=== PATIENT | female | born 1935 | race Caucasian/White ===

== ENCOUNTER → 2020-01-14 14:12 | Outpatient (CLI) | payer MEDICARE, OTHER, SELFPAY ==
--- NOTE | 2020-01-14 | DI.US.S_ITS ---
PROCEDURE: US THORACENTESIS INDICATIONS: PLEURAL EFFUSION TECHNIQUE: The indications, alternatives, benefits, risks, and complications of the procedure were explained to the patient. Written informed consent was obtained and placed in the chart. The chest was examined sonographically, and an appropriate site was chosen for thoracentesis. The skin was prepared and draped in the usual sterile fashion, and 1% lidocaine was infiltrated from the skin down through the pleural surface. A 19-gauge catheter-covered needle was then introduced into the pleural space, the catheter was advanced and the needle was withdrawn, and thereafter pleural fluid was aspirated. The catheter was then removed and a dressing was applied. COMPARISON: [facility], CR, XR CHEST 2 VIEWS, 12/30/2019, 10:59. [facility], CR, XR CHEST 1V, 01/14/2020, 14:32. FINDINGS: Access site: Left hemithorax. Needle: One-Step centesis catheter with introducer needle. Fluid volume and description: ~800 mL, clear Fluid sent for diagnostic testing: Per ordering physician. Medications: 1% lidocaine for local anaesthesia. Complications: None; post-procedural chest radiograph is pending to assess for pneumothorax. IMPRESSION: Successful ultrasound-guided thoracentesis. Dictated by: Betty Mejia M.D. on 01/14/2020 at 17:09 Approved by: Betty Mejia M.D. on 01/14/2020 at 17:10
--- NOTE | 2020-01-14 | PATH_ITS ---
Note [facility] Accession Number: [id number] TESTS RESULT FLAG UNITS REF RANGE LAB Clinician Provided Cytology Information No. of containers..01 Other (Miscellaneous) LEFT PLEURAL FLUID DIAGNOSIS: 01 LEFT PLEURAL FLUID, THORACENTESIS. NEGATIVE FOR MALIGNANT CELLS. REACTIVE MESOTHELIAL CELLS PRESENT. THIS INTERPRETATION INCLUDES EVALUATION OF A CELL BLOCK. Pathologist ICD10: 01 J90 Nicolás Clark MD, Pathologist NPI- [id number] Shawn Rodriguez, Dental Chairside Assistant ([facility]) 01 60 CC, YELLOW, CLEAR /LCS 01/15/2020 1303 Local FLAG LEGEND: L-Low Normal,H-High Normal,LL-Alert Low,HH-Alert High <-Panic Low,>-Panic High,A-Abnormal,AA-Critical Abnormal Performed at: 01 =Z [facility] [address], [place] [address] Satya Luther MD, Performed at: 01 [facility] [address], [place], [place] [id number] MD Satya Luther MD Phone: [phone]
--- NOTE | 2020-01-14 | DI.RAD.S_ITS ---
PROCEDURE: XR CHEST 1V INDICATIONS: POST THORACENTESIS TECHNIQUE: One view of the chest was acquired. COMPARISON: [facility], CR, XR CHEST 2 VIEWS, 12/30/2019, 10:59. [facility], CR, XR CHEST 2 VIEWS, 08/21/2019, 12:35. [facility], CR, XR CHEST 2 VIEWS, 08/06/2019, 7:18. FINDINGS: Surgical changes and devices: None. Lungs and pleura: There is a [id number] left effusion, decreased in size compared to the last exam. No pneumothorax. Left basilar atelectasis is present. Mediastinum: Mediastinal contours appear normal. Heart size is mildly increased. Bones and chest wall: No suspicious bony lesions. Overlying soft tissues appear unremarkable. IMPRESSION: No pneumothorax post thoracentesis. Dictated by: Betty Mejia M.D. on 01/14/2020 at 15:43 Approved by: Betty Mejia M.D. on 01/14/2020 at 15:45
[2020-01-14 16:42] LABS: LDH Body Fluid 227 U/L; Total Protein Body Fluid 3.7 g/dL
[2020-01-14 16:49] LABS: Body Fluid Tot Nucleated Cells 442 /uL
[2020-01-14 16:52] LABS: Body Fluid Red Blood Cells 238 /uL
[2020-01-14 16:53] LABS: Body Fluid Appearance SLIGHTLY CLOUDY; Body Fluid Clotted? NO CLOTS PRESENT; Body Fluid Color YELLOW
[2020-01-14 17:19] LABS: Mononuclear WBC Body Fluid 100 %; Polynuclear WBC Body Fluid 0 %
== END ==
PROVIDERS: PCP Internal Medicine; Referring Provider Internal Medicine; Visit Provider Internal Medicine
DX: J90 Pleural effusion, not elsewhere classified (principal)
CPT/HCPCS: 32555; 71045; 83615; 84157; 87070; 87075; 87205; 89051

== ENCOUNTER → 2020-02-22 12:30 | Outpatient (CLI) | payer MEDICARE, OTHER, SELFPAY ==
--- NOTE | 2020-02-22 | DI.RAD.S_ITS ---
PROCEDURE: XR CHEST 2V INDICATIONS: HEART FAILURE TECHNIQUE: 2 views of the chest were acquired. COMPARISON: [facility], , XR CHEST 1V, 01/14/2020, 14:32. FINDINGS: Surgical changes and devices: leadless cardiac pacer. Right upper quadrant surgical clips and breast prostheses. Lungs and pleura: Scattered subsegmental atelectasis and/or scarring. No focal consolidation. Small left pleural effusion with adjacent atelectasis, appears slightly increased since 01/14/20. No pneumothorax. Mediastinum: Mediastinal contours are normal. Heart size is normal. Chronic left clavicle fracture IMPRESSION: Small left pleural effusion with adjacent atelectasis, slightly increased since prior study Dictated by: Fabio Fairbanks M.D. on 02/22/2020 at 13:16 Approved by: Fabio Fairbanks M.D. on 02/22/2020 at 13:19
[2020-02-22 13:32] LABS: Add Manual Diff / Slide Review NO; Basophils Absolute Auto 100 /uL (0-100); Basophils Percent Auto 1.2 % (0-2); Eosinophils Absolute Auto 100 /uL (0-450); Eosinophils Percent Auto 2.6 % (2-4); Hematocrit 39.6 % (36-46); Hemoglobin 13.3 g/dL (12.0-16.0); Lymphocytes Absolute Auto 800 /uL (1100-4500); Lymphocytes Percent Auto 18.1 % (25-40); Mean Corpuscular HGB Conc 33.5 % (30-36); Mean Corpuscular Volume 95.6 fL (80-100); Monocytes Absolute Auto 500 /uL (0-900); Monocytes Percent Auto 10.5 % (3-14); Neutrophils Absolute Auto 2900 /uL (1500-7000); Neutrophils Percent Auto 67.6 % (50-75); Platelet Count 165 X10^3/uL (150-400); Red Blood Cell Count 4.15 X10^6/uL (4.0-5.2); Red Cell Distribution Width 15.5 % (11.6-14.8); White Blood Cell Count 4.3 X10^3/uL (4.5-11.0)
[2020-02-22 14:01] LABS: Alanine Aminotransferase 21 IU/L (<35); Albumin 3.6 g/dL (3.5-5.0); Albumin Globulin Ratio 1.2 (1.0-2.8); Alkaline Phosphatase 40 U/L (38-126); Aspartate Aminotransferase 27 IU/L (14-36); BUN Creatinine Ratio 13.1 (6-22); Bilirubin Total 0.5 mg/dL (0.2-1.3); Blood Urea Nitrogen 20 mg/dL (7-17); Calcium 9.6 mg/dL (8.4-10.2); Carbon Dioxide 29 mmol/L (22-32); Chloride 101 mmol/L (98-107); Estimated Glomerular Filt Rate 32.3 mL/min (>60); Globulin 2.9 g/dL (1.7-4.1); Glucose 96 mg/dL (80-110); HEMOLYSIS < 15 (0-50); Potassium 4.4 mmol/L (3.4-5.1); Sodium 136 mmol/L (137-145); Total Protein 6.5 g/dL (6.3-8.2)
== END ==
PROVIDERS: PCP Internal Medicine; Referring Provider Internal Medicine; Visit Provider Internal Medicine
DX: J90 Pleural effusion, not elsewhere classified (principal); I50.9 Heart failure, unspecified; J98.11 Atelectasis
CPT/HCPCS: 36415; 71046; 80053; 85025

== ENCOUNTER → 2020-03-21 15:00 | Outpatient (CLI) | payer MEDICARE, OTHER, SELFPAY ==
--- NOTE | 2020-03-21 | DI.RAD.S_ITS ---
PROCEDURE: XR CHEST 2V INDICATIONS: Heart Failure and Pleural Effusion TECHNIQUE: 2 views of the chest were acquired. COMPARISON: [facility], CR, XR CHEST 2V, 02/22/2020, 12:33. [facility], CR, XR CHEST 1V, 01/14/2020, 14:32. FINDINGS: Surgical changes and devices: Implanted cardiac monitoring device overlies the left paramedian lower chest. Lungs and pleura: Lungs are abnormal with left lung base atelectasis. Increasing left pleural effusions, no pneumothorax. The left pleural effusion was moderate in size previously and now is moderately large. Mediastinum: Mediastinal contours are normal. Heart size is normal. Bones and chest wall: No suspicious bony abnormalities. Soft tissues appear unremarkable. IMPRESSION: Increasing left pleural effusion, moderately large, with reference to the comparison from 02/22/20. Increased atelectasis. Dictated by: Elijah Longo M.D. on 03/21/2020 at 15:28 Approved by: Elijah Longo M.D. on 03/21/2020 at 15:38
== END ==
PROVIDERS: PCP Internal Medicine; Referring Provider Internal Medicine; Visit Provider Internal Medicine
DX: J90 Pleural effusion, not elsewhere classified (principal); I50.9 Heart failure, unspecified; J98.11 Atelectasis
CPT/HCPCS: 71046

== ENCOUNTER → 2020-03-23 13:00 | Outpatient (CLI) | payer MEDICARE, OTHER, SELFPAY ==
[2020-03-23 14:14] LABS: INR 1.4 (0.9-1.3); Prothrombin Time 16.2 SECONDS (10.1-12.7)
[2020-03-23 14:16] LABS: PTT Partial Thromboplastin Tim 35 SECONDS (26.4-36.2)
== END ==
PROVIDERS: PCP Internal Medicine; Referring Provider Internal Medicine; Visit Provider Internal Medicine
DX: J90 Pleural effusion, not elsewhere classified (principal)
CPT/HCPCS: 36415; 85610; 85730

== ENCOUNTER → 2020-03-25 14:05 | Outpatient (CLI) | payer MEDICARE, OTHER, SELFPAY ==
--- NOTE | 2020-03-25 | DI.RAD.S_ITS ---
PROCEDURE: XR CHEST 1V INDICATIONS: S/P LEFT THORACENTESIS TECHNIQUE: One view of the chest was acquired. COMPARISON: [facility], CR, XR CHEST 2V, 03/21/2020, 14:57. FINDINGS: Surgical changes and devices: An intracardiac implanted monitoring device is redemonstrated. Lungs and pleura: There is a small residual left pleural effusion, decreased from the prior study. No evidence of pneumothorax. Linear left basilar opacities likely represent residual atelectasis. Linear right basilar opacities also likely represent atelectasis. There is mild pulmonary vascular prominence suggestive of mild edema. Mediastinum: Mediastinal contours appear unchanged. Heart size is enlarged. Bones and chest wall: No suspicious bony lesions. Overlying soft tissues appear unremarkable. IMPRESSION: 1. No evidence of pneumothorax. 2. Small decreased residual left pleural effusion and left basilar atelectasis. Dictated by: Satya Greenberg M.D. on 03/25/2020 at 15:52 Approved by: Satya Greenberg M.D. on 03/25/2020 at 16:02
--- NOTE | 2020-03-25 | PATH_ITS ---
Note [facility] Accession Number: [id number] TESTS RESULT FLAG UNITS REF RANGE LAB Clinician Provided Cytology Information No. of containers..01 Other (Miscellaneous) LEFT PLEURAL FLUID DIAGNOSIS: LEFT PLEURAL FLUID NEGATIVE FOR MALIGNANT CELLS. Pathologist ICD10: J90 Svetlana Drake MD, Pathologist NPI- [id number] Cristobal Sebastian, Manager Books ([facility]) 01 85 CC, YELLOW, CLOUDY RECEIVED: FRESH IN BLUE CAP CONTAINER. /VD 03/29/2020 1015 [facility] FLAG LEGEND: L-Low Normal,H-High Normal,LL-Alert Low,HH-Alert High <-Panic Low,>-Panic High,A-Abnormal,AA-Critical Abnormal Performed at: 01 =Z [facility] [address], [place] [address] Satya Luther MD, Performed at: 01 [facility] [address], [place], [place] [id number] MD Satya Luther MD Phone: [phone]
--- NOTE | 2020-03-25 | DI.US.S_ITS ---
PROCEDURE: US THORACENTESIS INDICATIONS: PLUERAL EFFUSION TECHNIQUE: The indications, alternatives, benefits, risks, and complications of the procedure were explained to the patient. Written informed consent was obtained and placed in the chart. The chest was examined sonographically, and an appropriate site was chosen for thoracentesis. The skin was prepared and draped in the usual sterile fashion, and 1% lidocaine was infiltrated from the skin down through the pleural surface. A 19-gauge catheter-covered needle was then introduced into the pleural space, the catheter was advanced and the needle was withdrawn, and thereafter pleural fluid was aspirated. The catheter was then removed and a dressing was applied. COMPARISON: [facility], THORACENTESIS, 01/14/2020, 14:47. FINDINGS: Access site: Left hemithorax. Needle: One-Step centesis catheter with introducer needle. Fluid volume and description: 1300 cc of serous fluid Fluid sent for diagnostic testing: For cytology Medications: 1% lidocaine for local anaesthesia. Complications: None; post-procedural chest radiograph is pending to assess for pneumothorax. IMPRESSION: Successful ultrasound-guided thoracentesis. Dictated by: Fabio Fairbanks M.D. on 03/25/2020 at 17:05 Approved by: Fabio Fairbanks M.D. on 03/25/2020 at 17:06
== END ==
PROVIDERS: PCP Internal Medicine; Referring Provider Internal Medicine; Visit Provider Internal Medicine
DX: J90 Pleural effusion, not elsewhere classified (principal)
CPT/HCPCS: 32555; 71045

== ENCOUNTER → 2020-03-31 16:21 | Outpatient (CLI) | payer MEDICARE, OTHER, SELFPAY ==
[2020-03-31 17:36] LABS: Lactate Dehydrogenase 464 U/L (313-618); Total Protein 6.5 g/dL (6.3-8.2)
[2020-04-01 16:05] LABS: Alanine Aminotransferase 11 IU/L (<35); Albumin 3.5 g/dL (3.5-5.0); Albumin Globulin Ratio 1.2 (1.0-2.8); Alkaline Phosphatase 44 U/L (38-126); Aspartate Aminotransferase 24 IU/L (14-36); BUN Creatinine Ratio 14.7 (6-22); Bilirubin Total 0.7 mg/dL (0.2-1.3); Blood Urea Nitrogen 21 mg/dL (7-17); Calcium 9.7 mg/dL (8.4-10.2); Carbon Dioxide 30 mmol/L (22-32); Chloride 100 mmol/L (98-107); Glucose 145 mg/dL (80-110); HEMOLYSIS < 15 (0-50); Potassium 3.9 mmol/L (3.4-5.1); Sodium 137 mmol/L (137-145)
[2020-04-01 16:14] LABS: NT-proBNP (BNP-Adult 18+) 3150 pg/mL (<450)
[2020-04-01 16:36] LABS: TSH w/ Reflex to FT4 2.79 uIU/mL (0.47-4.68)
== END ==
PROVIDERS: PCP Internal Medicine; Referring Provider Internal Medicine; Visit Provider Internal Medicine
DX: J90 Pleural effusion, not elsewhere classified (principal); R06.02 Shortness of breath; I10 Essential (primary) hypertension
CPT/HCPCS: 36415; 80053; 83615; 83880; 84155; 84443

== ENCOUNTER → 2020-04-08 14:37 | Outpatient (CLI) | payer MEDICARE, OTHER, SELFPAY ==
--- NOTE | 2020-04-08 | DI.RAD.S_ITS ---
PROCEDURE: XR CHEST 2V INDICATIONS: Pleural effusion, not elsewhere classified TECHNIQUE: 2 views of the chest were acquired. COMPARISON: [facility], CR, XR CHEST 1V, 03/25/2020, 15:26. [facility], CR, XR CHEST 2V, 03/21/2020, 14:57. FINDINGS: Surgical changes and devices: Implanted small cardiac monitoring device superimposes on the cardiac silhouette to left of midline anteriorly.. Lungs and pleura: Lungs are abnormal with a mild edema pattern as has been previously the case. The subpulmonic right pleural effusion has redeveloped after thoracentesis 03/25/20 and occupies slightly over one half of the left hemithorax. pleural effusions or pneumothorax. Mediastinum: Mediastinal contours are normal. Heart size is normal. Bones and chest wall: No suspicious bony abnormalities. Soft tissues appear unremarkable. IMPRESSION: Increasing left pleural effusion, generalized mild pulmonary edema again noted. Dictated by: Elijah Longo M.D. on 04/08/2020 at 15:29 Approved by: Elijah Longo M.D. on 04/08/2020 at 15:32
[2020-04-08 16:29] LABS: Alanine Aminotransferase 13 IU/L (<35); Albumin Globulin Ratio 1.4 (1.0-2.8); Alkaline Phosphatase 43 U/L (38-126); Aspartate Aminotransferase 24 IU/L (14-36); BUN Creatinine Ratio 16.1 (6-22); Blood Urea Nitrogen 22 mg/dL (7-17); Calcium 10.1 mg/dL (8.4-10.2); Carbon Dioxide 31 mmol/L (22-32); Chloride 98 mmol/L (98-107); Estimated Glomerular Filt Rate 36.7 mL/min (>60); Globulin 2.8 g/dL (1.7-4.1); Glucose 123 mg/dL (80-110); HEMOLYSIS < 15 (0-50); Potassium 3.3 mmol/L (3.4-5.1); Sodium 137 mmol/L (137-145); Total Protein 6.8 g/dL (6.3-8.2)
[2020-04-08 16:33] LABS: NT-proBNP (BNP-Adult 18+) 2670 pg/mL (<450)
== END ==
PROVIDERS: PCP Internal Medicine; Referring Provider Internal Medicine; Visit Provider Denturist
DX: J90 Pleural effusion, not elsewhere classified (principal); I50.9 Heart failure, unspecified
CPT/HCPCS: 36415; 71046; 80053; 83880

== ENCOUNTER → 2020-04-19 12:46 | Outpatient (CLI) | payer MEDICARE, OTHER, SELFPAY ==
--- NOTE | 2020-04-19 | PATH_ITS ---
Note [facility] Accession Number: [id number] TESTS RESULT FLAG UNITS REF RANGE LAB Clinician Provided Cytology Information No. of containers..01 Other (Miscellaneous) PLEURAL FLUID DIAGNOSIS: LEFT PLEURAL FLUID, ASPIRATION. NEGATIVE FOR MALIGNANT CELLS. FEW BENIGN MESOTHELIAL CELLS IN A BACKGROUND OF SMALL LYMPHOCYTES. THIS INTERPRETATION INCLUDES EVALUATION OF A CELL BLOCK. Pathologist ICD10: 01 J90 Nicolás Clark MD, Pathologist NPI- [id number] Erwin Gamboa, Capacitor Inspector ([facility]) 01 15 CC, YELLOW, CLEAR RECEIVED: FRESH IN 50 CC BLUE CAP TUBE. /VDU 04/22/2020 0833 Local FLAG LEGEND: L-Low Normal,H-High Normal,LL-Alert Low,HH-Alert High <-Panic Low,>-Panic High,A-Abnormal,AA-Critical Abnormal Performed at: 01 =Z [facility] [address], [place] [address] Satya Luther MD, Performed at: 01 [facility] [address], [place], [place] [id number] MD Satya Luther MD Phone: [phone]
--- NOTE | 2020-04-19 | DI.RAD.S_ITS ---
PROCEDURE: XR CHEST 1V INDICATIONS: POST THORACENTISIS AT 4:45 PM TECHNIQUE: One view of the chest was acquired. COMPARISON: [facility], CT, CT CHEST WO CON, 04/19/2020, 15:35. [facility], US, US THORACENTESIS, 04/19/2020, 14:34. [facility], CR, XR CHEST 1V, 03/25/2020, 15:26. [facility], CR, XR CHEST 2V, 04/08/2020, 14:43. [facility], CR, XR CHEST 1V, 04/19/2020, 14:29. FINDINGS: Surgical changes and devices: Leadless right upper quadrant surgical clips. cardiac pacer. Lungs and pleura: Redemonstrated bilateral apical calcifications. Small residual left pleural effusion. No pneumothorax. No acute consolidation Mediastinum: Mediastinal contours appear normal. Heart size is normal. Bones and chest wall: No suspicious bony lesions. Chronic left clavicle fracture. Overlying soft tissues appear unremarkable. IMPRESSION: No radiographically visible pneumothorax (small left pneumothorax noted on the comparison CT, as reported). No interval change since the prior chest radiograph. Dictated by: Fabio Fairbanks M.D. on 04/19/2020 at 16:46 Approved by: Fabio Fairbanks M.D. on 04/19/2020 at 16:52
--- NOTE | 2020-04-19 12:57 | DI.US.S_ITS ---
PROCEDURE: US THORACENTESIS INDICATIONS: PLEURAL EFFUSION TECHNIQUE: The indications, alternatives, benefits, risks, and complications of the procedure were explained to the patient. Written informed consent was obtained and placed in the chart. The chest was examined sonographically, and an appropriate site was chosen for thoracentesis. The skin was prepared and draped in the usual sterile fashion, and 1% lidocaine was infiltrated from the skin down through the pleural surface. A 19-gauge catheter-covered needle was then introduced into the pleural space, the catheter was advanced and the needle was withdrawn, and thereafter pleural fluid was aspirated. The catheter was then removed and a dressing was applied. COMPARISON: [facility], THORACENTESIS, 03/25/2020, 14:52. FINDINGS: Access site: Left hemithorax. Needle: One-Step centesis catheter with introducer needle. Fluid volume and description: 860 cc of serous fluid Fluid sent for diagnostic testing: Not requested Medications: 1% lidocaine for local anaesthesia. Complications: No immediate complication; post-procedural chest radiograph is pending to assess for pneumothorax. IMPRESSION: Successful ultrasound-guided thoracentesis. Dictated by: Fabio Fairbanks M.D. on 04/21/2020 at 11:36 Approved by: Fabio Fairbanks M.D. on 04/21/2020 at 11:37
--- NOTE | 2020-04-19 12:59 | DI.CT.S_ITS ---
PROCEDURE: CT CHEST WO CON INDICATIONS: Pleural effusion, not elsewhere classified TECHNIQUE: Noncontrast 5 mm thick sections acquired from the pulmonary apices to the posterior costophrenic angles. 1 mm lung window, 5 mm thick coronal and sagittal and 7 mm axial MIP reformats were then acquired. For radiation dose reduction, the following was used: automated exposure control, adjustment of mA and/or kV according to patient size. COMPARISON: CT, CT ANGIO CHEST PE, 06/22/2019, 13:15. [facility], CR, XR CHEST 2V, 04/08/2020, 14:43. [facility], CR, XR CHEST 1V, 03/25/2020, 15:26. [facility], US, US THORACENTESIS, 03/25/2020, 14:52. [facility], CR, XR CHEST 2V, 03/21/2020, 14:57. [facility], CR, XR CHEST 2V, 02/22/2020, 12:33. FINDINGS: Image quality: Excellent. Lungs and pleura: No acute consolidation. There is scattered left basilar atelectasis and scarring. Some of these demonstrate nodular appearance such as image 184/3 of the lingula, still technically nonspecific. Minimal if any left pleural fluid. Small residual left basilar pneumothorax is seen after thoracentesis performed earlier same day Right apical scarring. Elsewhere, right lung appears clear except for mild scarring/atelectasis. Mild scattered areas of groundglass opacity, potentially low-grade pulmonary edema versus chronic interstitial disease Central and peripheral airways are patent and normal in caliber. Mediastinum: Heart size is enlarged. Coronary artery calcifications are present. Leadless cardiac pacer noted. Mild pericardial effusion. No mediastinal adenopathy by size criteria. Thoracic aorta and central pulmonary arteries are normal in size. Esophagus is normal in caliber. No hiatal hernia. Bones and chest wall: Bilateral breast prostheses. From No suspicious bony lesions. No vertebral body compression fractures. Diffuse osteopenia . Mild deformity of the sternum is unchanged since 2019. No axillary or supraclavicular adenopathy by size criteria. Calcified pleural plaques seen at the apices. Chronic left clavicle fracture. Abdomen: Visualized upper abdominal solid organs and bowel loops appear normal in the absence of contrast. IMPRESSION: Minimal residual left pleural fluid, status post ultrasound-guided thoracentesis. Small basilar left pneumothorax is present, which is not evident on the immediate post procedure chest radiograph. A subsequent chest radiograph is pending. Scattered left basilar scarring or atelectasis, some of these demonstrate slightly nodular appearance although still nonspecific. No discrete mass although recommend correlation with pleural fluid analysis. Coronary artery disease Additional chronic and incidental findings as above. Dictated by: Fabio Fairbanks M.D. on 04/19/2020 at 15:52 Approved by: Fabio Fairbanks M.D. on 04/19/2020 at 16:21
[2020-04-19 13:34] LABS: Platelet Count 182 X10^3/uL (150-400)
[2020-04-19 13:36] LABS: INR 1.1 (0.9-1.3); Prothrombin Time 12.4 SECONDS (10.1-12.7)
[2020-04-19 13:41] LABS: Albumin 3.9 g/dL (3.5-5.0); Amylase 70 U/L (30-110); Cholesterol 168 mg/dL (140-199); Glucose 110 mg/dL (80-110); HDL Cholesterol 44 mg/dL (40-60); LDL Cholesterol Calculated 93 mg/dL (<100); Lactate Dehydrogenase 404 U/L (313-618); Total Protein 6.7 g/dL (6.3-8.2); Triglycerides 156 mg/dL (35-150)
[2020-04-19 13:50] LABS: NT-proBNP (BNP-Adult 18+) 3000 pg/mL (<450)
--- NOTE | 2020-04-19 15:18 | DI.RAD.S_ITS ---
PROCEDURE: XR CHEST 1V INDICATIONS: POST THORACENTESIS TECHNIQUE: One view of the chest was acquired. COMPARISON: [facility], US, US THORACENTESIS, 04/19/2020, 14:34. [facility], CT, CT CHEST WO CON, 04/19/2020, 15:35. [facility], CR, XR CHEST 2V, 04/08/2020, 14:43. [facility], CR, XR CHEST 1V, 03/25/2020, 15:26. FINDINGS: Surgical changes and devices: Implanted cardiac monitoring device over the left medial chest inferiorly. Lungs and pleura: Lungs are clear. No pleural effusions or pneumothorax. Mediastinum: Mediastinal contours appear normal. Heart size is normal. Bones and chest wall: No suspicious bony lesions. Overlying soft tissues appear unremarkable. Bilateral breast implants have been previously documented by CT scanning. 1 of these implants overlies the lower left chest. IMPRESSION: No pneumothorax after reported left thoracentesis. Breast implant overlies the lower chest. Results are referred to dedicated report from CT scanning obtained same day. Dictated by: Elijah Longo M.D. on 04/19/2020 at 15:11 Approved by: Elijah Lnogo M.D. on 04/19/2020 at 15:14
[2020-04-21 15:39] LABS: Albumin 3.1 g/dL (2.9-4.4); Alpha-1-Globulin 0.2 g/dL (0.0-0.4); Alpha-2-Globulin 0.7 g/dL (0.4-1.0); Gamma Globulin 1.1 g/dL (0.4-1.8); Globulin Total 2.9 g/dL (2.2-3.9)
== END ==
PROVIDERS: PCP Internal Medicine; Referring Provider Internal Medicine; Visit Provider Internal Medicine
DX: J90 Pleural effusion, not elsewhere classified (principal); J93.9 Pneumothorax, unspecified; I31.3 Pericardial effusion (noninflammatory); I50.9 Heart failure, unspecified; E78.2 Mixed hyperlipidemia; I25.10 Atherosclerotic heart disease of native coronary artery without angina pectoris; R39.9 Unspecified symptoms and signs involving the genitourinary system; Z95.0 Presence of cardiac pacemaker
CPT/HCPCS: 32555; 36415; 71045; 71250; 80061; 82040; 82150; 82947; 83615; 83880; 84155; 84165; 85049; 85610; 87077; 87086; 87186

== ENCOUNTER → 2020-04-19 18:37 | Outpatient (ROUT) | payer MEDICARE, OTHER, SELFPAY | PROVIDERS: PCP Internal Medicine; Visit Provider Internal Medicine | DX: R39.9 Unspecified symptoms and signs involving the genitourinary system (principal) | CPT/HCPCS: 87077; 87086 ==

== ENCOUNTER → 2020-05-10 14:24 | Outpatient (CLI) | payer OTHER, MEDICARE, SELFPAY ==
--- NOTE | 2020-05-10 | DI.RAD.S_ITS ---
PROCEDURE: XR CHEST 2V INDICATIONS: pleural effusion TECHNIQUE: 2 views of the chest were acquired. COMPARISON: [facility], CR, XR CHEST 1V, 04/19/2020, 16:26. [facility], CR, XR CHEST 1V, 04/19/2020, 14:29. FINDINGS: Surgical changes and devices: Implanted cardiac monitoring device noted left paramedian lower chest.. Lungs and pleura: Lungs are abnormal, with a mild degree of pulmonary edema, and a mild to moderate subpulmonic left pleural effusion. No pleural effusions or pneumothorax. Mediastinum: Mediastinal contours are normal. Heart size is normal. Bones and chest wall: No suspicious bony abnormalities. Soft tissues appear unremarkable. IMPRESSION: Pulmonary edema pattern, mild. Increasing subpulmonic left pleural effusion (now mild to moderate). Dictated by: Elijah Longo M.D. on 05/10/2020 at 15:47 Approved by: Elijah Longo M.D. on 05/10/2020 at 15:48
== END ==
PROVIDERS: PCP Internal Medicine; Referring Provider Internal Medicine; Visit Provider Internal Medicine
DX: J90 Pleural effusion, not elsewhere classified (principal); J81.1 Chronic pulmonary edema
CPT/HCPCS: 71046